=== PATIENT | male | born 1990 ===

== ENCOUNTER 2017-02-21 07:38 | Emergency (ER) | payer MEDICAID ==
[~2017-02-21] VITALS: Ht 195.6 cm; Wt 120.0 kg
[2017-02-21 07:40] VITALS: BP 138/88; PULSE 84; RESP 17; TEMP 98.7; O2SAT 97
[2017-02-21] MEDS ORDERED: SODIUM CHLOR 0.9% 1000 ML INJ 1,000 ML IV SCH (08:28)
[2017-02-21] MEDS ORDERED: ONDANSETRON HCL 4 MG/2 ML VIAL IVP ONE (08:30)
[2017-02-21] MEDS ORDERED: ALUMINUM/MAGNESIUM/SIMETH 30 ML CUP PO ONE (08:30)
[2017-02-21] MEDS ORDERED: SODIUM CHLORIDE 0.9% FLUSH 10 ML FLUSH IV FLUSH PRN (08:30)
[2017-02-21] MEDS ORDERED: ATROPINE/SCOPOLAM/HYOSCYAM/PB ELIXIR 10 ML CUP PO ONE (08:30)
[2017-02-21] MEDS ORDERED: FAMOTIDINE 20 MG/2 ML VIAL IV PUSH ONE (08:30)
[2017-02-21 08:40] LABS: AUTOMATED NEUTROPHIL # 10.2 TH/MM3 (1.8-7.7); BASOPHIL % 0.3 % (0.0-2.0); EOSINOPHIL % 0.3 % (0.0-4.0); HEMATOCRIT 48.4 % (39.0-51.0); HEMOGLOBIN 16.3 GM/DL (13.0-17.0); LYMPH % 11.4 % (9.0-44.0); LYMPHOCYTE # 1.4 TH/MM3 (1.0-4.8); MEAN CELL VOLUME 93.5 FL (80.0-100.0); MEAN CORPUSCULAR HEMOGLOBIN 31.6 PG (27.0-34.0); MEAN CORPUSCULAR HGB CONC 33.8 % (32.0-36.0); MEAN PLATELET VOLUME 10.4 FL (7.0-11.0); MONOCYTE # 0.7 TH/MM3 (0-0.9); PLATELET COUNT 213 TH/MM3 (150-450); RED BLOOD COUNT 5.18 MIL/MM3 (4.50-5.90); RED CELL DISTRIBUTION WIDTH 14.4 % (11.6-17.2); WHITE BLOOD COUNT 12.4 TH/MM3 (4.0-11.0)
[2017-02-21 08:41] VITALS: PULSE 76; RESP 18; O2SAT 100
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
[2017-02-21 09:08] LABS: ALT (GPT) 37 U/L (12-78); AST (GOT) 16 U/L (15-37); BICARBONATE 26.2 MEQ/L (21.0-32.0); BLOOD UREA NITROGEN 9 MG/DL (7-18); CALCIUM 9.1 MG/DL (8.5-10.1); CHLORIDE 106 MEQ/L (98-107); CREATININE 0.89 MG/DL (0.60-1.30); GLOMERULAR FILTRATION RATE 103 ML/MIN (>89); GLUCOSE,RANDOM 111 MG/DL (74-106); LIPASE 222 U/L (73-393); SODIUM (NA) 140 MEQ/L (136-145)
[2017-02-21 09:10] LABS: ALKALINE PHOSPHATASE 43 U/L (45-117); TOTAL BILIRUBIN ADULT 0.6 MG/DL (0.2-1.0); TOTAL PROTEIN 7.9 GM/DL (6.4-8.2)
[2017-02-21 09:11] LABS: BACTERIA, URINE OCC /hpf; BILIRUBIN, URINE NEG (NEG); BLOOD, URINE NEG (NEG); GLUCOSE,URINE NEG (NEG); KETONE, URINE 80 mg/dL (NEG); MUCUS URINE MANY /lpf (OCC); NITRITE,URINE NEG (NEG); SQUAMOUS EPITHELIAL CELL URINE 1 /hpf (0-5); URINE COLOR YELLOW (YELLW/STRAW); URINE LEUKOCYTE ESTERASE LARGE (NEG)
[2017-02-21 10:26] VITALS: BP 139/73; PULSE 63; RESP 18; TEMP 98.6; O2SAT 100
[2017-02-21] MEDS ORDERED: DICY10 PO (10:29)
[2017-02-21] MEDS ORDERED: PROT40TA PO (10:29)
[2017-02-21] MEDS ORDERED: BACT800T5 PO (10:29)
[2017-02-21] MEDS ORDERED: CARA1TAB6 PO (10:29)
== END 2017-02-21 11:19 | disposition home or self-care (01) ==
LOC: NEPC 07:38
DX: R10.13 Epigastric pain (principal); N30.00 Acute cystitis without hematuria; B96.89 Other specified bacterial agents as the cause of diseases classified elsewhere; Z72.0 Tobacco use
CPT/HCPCS: 80053; 81001; 83690; 85025; 87086; 96374; 96375; 99285; J2405; J7030

== ENCOUNTER 2017-02-25 22:59 | Emergency (ER) | payer MEDICAID ==
[~2017-02-25] VITALS: Ht 195.6 cm; Wt 120.0 kg
[~2017-02-25 22:59] MED LIST: BACT800T5 PO; CARA1TAB6 PO; DICY10 PO; PROT40TA PO
[2017-02-25 23:02] VITALS: BP 189/84; PULSE 94; RESP 20; TEMP 98.6; O2SAT 97
== END 2017-02-26 01:17 | disposition left against medical advice (07) ==
LOC: NED 22:59
DX: R10.9 Unspecified abdominal pain (principal)
CPT/HCPCS: 99281